=== PATIENT | female | born 1990 | race Two or more races ===

== ENCOUNTER 2024-01-16 03:29 | Emergency (ER) | payer SELFPAY ==
[~2024-01-16] VITALS: Ht 154.9 cm; Wt 63.6 kg
[2024-01-16 03:39] VITALS: TEMP 98.4
[2024-01-16 04:35] LABS: COVID AG,FIA SOURCE NASAL SWAB
[2024-01-16 05:48] LABS: SARS-COV2 (COVID) ANTIGEN,FIA Negative (Negative)
[2024-01-16 06:09] VITALS: BP 130/81; PULSE 71; RESP 14; O2SAT 100
[2024-01-16 07:26] LABS: BASOPHILS % (AUTO) 0.4 % (0.0-2.0); EOSINOPHILS % (AUTO) 0 % (1.0-6.0); HEMOGLOBIN 13.9 g/dL (12.0-16.0); LYMPHOCYTES # (AUTO) 1.4 K/uL (1.0-4.8); LYMPHOCYTES % (AUTO) 19.1 % (22.0-44.0); MEAN CORPUSCULAR HEMOGLOBIN 29.7 pg (26.0-34.0); MEAN CORPUSCULAR HGB CONC 33.2 G/dL (31.0-37.0); MEAN CORPUSCULAR VOLUME 90 fL (80-100); MONOCYTES # (AUTO) 0.3 K/uL (0.1-1.0); MONOCYTES % (AUTO) 3.6 % (2.0-9.0); NEUTROPHILS # (AUTO) 5.7 K/uL (1.8-7.7); NEUTROPHILS % (AUTO) 76.9 % (40.0-70.0); PLATELET COUNT (AUTO) 293 K/uL (150-450); RED BLOOD CELL COUNT(AUTO) 4.69 MIL/uL (4.00-5.20); WHITE BLOOD COUNT (AUTO) 7.4 K/uL (4.5-11.0)
[2024-01-16 07:39] LABS: ANION GAP 15 mmol/L (8-16); CARBON DIOXIDE 20 mmol/L (22-29); CHLORIDE 102 mmol/L (98-107); CREATININE 0.65 mg/dL (0.60-1.30); GLOMERULAR FILTR. RATE CALC > 60 mL/min (>60); GLUCOSE,RANDOM 88 mg/dL (70-110); POTASSIUM 4.1 mmol/L (3.5-5.1); SODIUM SERUM 137 mmol/L (136-145); UREA NITROGEN, BLOOD 5 mg/dL (7-18)
[2024-01-16 07:44] LABS: ALANINE AMINOTRANSFERASE 17 U/L (12-78); ALBUMIN 4.2 g/dL (3.4-5.0); ALKALINE PHOSPHATASE 63 U/L (46-116); ASPARTATE AMINOTRANSFERASE 24 U/L (15-37); BILIRUBIN,TOTAL 0.3 mg/dL (0.1-1.0)
[2024-01-16 08:14] LABS: TOTAL PROTEIN, SERUM 8.4 g/dL (6.4-8.2)
[2024-01-16 08:55] LABS: ALCOHOL, BLOOD (SERUM) 43 mg/dL (0-10)
[2024-01-16] MEDS ORDERED: no medications PO (11:45)
[2024-01-16 13:09] LABS: HCG,QUANTITATIVE < 1 mIU/mL (0-6)
[2024-01-18] MEDS ORDERED: SERT-439 PO (20:07)
== END 2024-01-16 09:52 | disposition admitted as inpatient to this hospital (09) ==
LOC: EMS 03:29
DX: F32.9 Major depressive disorder, single episode, unspecified (principal); Z20.822 Contact with and (suspected) exposure to COVID-19
CPT/HCPCS: 99285; 87426; 80048; 80076; 84702; 85025; 36415; G0480